=== PATIENT | female | born 1995 | race Caucasian/White ===

== ENCOUNTER 2018-09-02 10:09 | Day surgery (SDC) | payer BC ==
[2018-09-02 10:21] VITALS: BMI 28.3
[2018-09-02] MEDS ORDERED: LIDOCAINE 2.5%/PRILOCAINE 2.5% (5 Gram/TUBE) TP ONE (10:51)
[2018-09-02] MEDS ORDERED: MIDAZOLAM HCL 2 MG/2 ML SINGLE DOSE VIAL ONE (12:44)
[2018-09-02] MEDS ORDERED: LIDOCAINE HCL/PF 2% SDV 5ML VIAL ONE (12:48)
[2018-09-02] MEDS ORDERED: PROPOFOL 20 ML ONE (12:55)
[2018-09-02] MEDS ORDERED: BUPIVACAINE HCL/PF 2.5 MG/ML - 30 ML VIAL IJ ONE (13:18)
[2018-09-02] MEDS ORDERED: BUPIVACAINE HCL/PF 0.25% (2.5MG/ML) 10 ML VIAL IJ ONE (13:34)
[2018-09-02] MEDS ORDERED: ONDANSETRON 4 MG/2 ML VIAL ONE (13:48)
[2018-09-02] MEDS ORDERED: oxyCODONE HCL 5 MG TABLET PO PRN ×2 (14:06)
[2018-09-02] MEDS ORDERED: ONDANSETRON 4 MG/2 ML VIAL IVPUSH PRN (14:06)
[2018-09-02] MEDS ORDERED: PROMETHAZINE HCL 25 MG/1 ML VIAL IVPUSH PRN (14:06)
[2018-09-02 14:54] VITALS: TEMP 98
[2018-09-02 16:56] VITALS: BP 108/64; PULSE 80
--- NOTE | 2018-09-03 10:45 | OP ---
DATE OF OPERATION: 09/02/2018 PREOPERATIVE DIAGNOSIS: Left ulnar neuropathy at elbow. POSTOPERATIVE DIAGNOSIS: Left ulnar neuropathy at elbow. OPERATIVE PROCEDURE: Left ulnar nerve decompression at elbow. SURGEON: Jackson Jim MD WOMEN'S STUDIES PROFESSOR: CARLOS Fisher ANESTHESIA: General. COMPLICATIONS: None. ESTIMATED BLOOD LOSS: Minimal. INDICATIONS FOR PROCEDURE: The patient is an 23-year-old female with acute carpal tunnel syndrome with motor loss as well as sensory loss. She was indicated for operative treatment. The risks, benefits and alternatives were discussed with her at length, including her mother and father, and proper informed consent was obtained. DESCRIPTION OF PROCEDURE: After proper identification of the patient and correct operative site, the patient was brought to the operating room and placed supine on the table, with all bony prominences well-padded. General anesthesia was provided by the anesthesiologist. The left upper extremity was prepped and draped in the usual sterile fashion. A well-padded tourniquet was placed after sterile prep. Esmarch bandage was used to exsanguinate the left upper extremity, and the tourniquet was inflated to 250 mmHg. A curvilinear incision was made over the posteromedial aspect of the elbow. The incision was taken sharply through the skin, with blunt and sharp dissection through the subcutaneous tissues, taking care to protect the sensory nerves in the area. The cubital tunnel was identified and released from a proximal to distal direction starting by resecting part of the intermuscular septum, which was quite prominent. Going distally, the cubital tunnel itself was released, and the nerve was released all the way into the 2 heads of the flexor carpi ulnaris muscle and fascia. This area was found to be particularly tight as well, as was the cubital tunnel itself. A hyperemic response was noted after release. Otherwise the ulnar nerve looked fairly normal, with slight mild hourglassing at the cubital tunnel area. The elbow was taken through a full range of motion. There was no subluxation at the ulnar nerve and there was no further tension on the nerve. There was no evidence of mass or bone spicules in the area. Tendon gliding was found to be normal at this time. The wound was irrigated with copious amounts of normal saline and repaired in layers using 4-0 Vicryl and Monocryl sutures. Steri-Strips and sterile dressings were applied. A bulky dressing was placed. The patient was reversed from sedation and brought to the recovery room in stable condition. Of note, motor examination in the recovery room showed improved strength and motion of the intrinsic muscles compared to preoperatively. Evan Jade, the food trades assistants, was integral throughout this procedure. The procedure could not have been performed without a skilled operative food trades assistants. Sara MORALES/[id number]
== END 2018-09-02 16:25 | disposition home or self-care (01) ==
LOC: FASU 10:09
PROVIDERS: ATTEND Orthopaedic Surgery Hand Surgery
PROC: 01N40ZZ Release Ulnar Nerve, Open Approach (ICD-10-PCS; principal; 2018-09-02 13:01)
DX: G56.22 Lesion of ulnar nerve, left upper limb (principal)
CPT/HCPCS: 84703; 94760